=== PATIENT | female | born 1990 ===

== ENCOUNTER 2018-07-11 08:56 | Emergency (ER) | payer SELFPAY ==
[~2018-07-11] VITALS: Ht 152.4 cm; Wt 47.2 kg
[2018-07-11 09:11] VITALS: BP 113/68
== END 2018-07-11 10:15 | disposition home or self-care (01) ==
LOC: ED 09:50
DX: Z48.01 Encounter for change or removal of surgical wound dressing (principal)
CPT/HCPCS: 99281; 99282